=== PATIENT | male | born 1940 | race Caucasian/White ===

== ENCOUNTER 2017-12-30 13:38 | Emergency (ER) | payer OTHER, MEDICARE, BC ==
[2017-12-30 13:49] VITALS: RESP 18
[2017-12-30] MEDS ORDERED: KETOROLAC 60 MG/2 ML VIAL IM STA (14:18)
--- NOTE | 2017-12-30 14:20 | ED ---
General Adult HPI - General Chief complaint: Fall Stated complaint: Fall/back & side pain Time Seen by Provider: 12/30/17 13:45 Source: patient, RN notes reviewed Mode of arrival: wheelchair Limitations: no limitations - History of Present Illness Initial comments: This is a 77-year-old male who comes emergency Department complaining of right lower back pain, right buttocks pain and right hip pain. Patient states yesterday he was on a ladder at about 6 feet off the ground when the ladder slipped and he fell backwards onto his buttocks. Patient states moving his right leg at all it is very painful. Patient states she was able to get around with crutches today but it was much worse today than yesterday. Patient states he also has some pain in his lower right back and buttocks. Patient denies hitting his head patient denies any neck pain patient denies any numbness weakness. Patient denies any chest pain or upper back pain. Patient denies any abdominal pain. Patient denies any upper extremity pain. - Related Data Previous Rx's Medication Instructions Recorded Hydrocodone/Acetaminophen [[place] 1 each PO Q4HR PRN #14 tab 12/30/17 5-325] Allergies Allergy/AdvReac Type Severity Reaction Status Date / Time No Known Allergies Allergy Verified 12/30/17 13:49 Review of Systems ROS Statement: Those systems with pertinent positive or pertinent negative responses have been documented in the HPI. ROS Other: All systems not noted in ROS Statement are negative. Past Medical History Past Medical History: Hypertension History of Any Multi-Drug Resistant Organisms: None Reported Past Surgical History: Adenoidectomy, Hernia Repair, Tonsillectomy Past Psychological History: No Psychological Hx Reported Smoking Status: Never smoker Past Alcohol Use History: Rare Past Drug Use History: None Reported General Exam - General Exam Comments Initial Comments: GENERAL Patient is well-developed and well-nourished. Patient is in mild distress. Neck is full range of motion. EYES Patient's pupils are equal and round. Extraocular motion is intact SKIN Unremarkable NEURO The patient is alert and oriented 3 PYSCH Patient has normal interpersonal interactions. MUSCULOSKELETAL Patient has tenderness with external rotation of his right hip patient's tenderness in his right buttocks patient has some tenderness in the right lower back. Patient has no numbness or weakness. Limitations: no limitations Course Vital Signs 12/30/17 13:44 Temperature 97.9 F Pulse Rate 85 Respiratory 18 Rate Blood Pressure 160/85 O2 Sat by Pulse 97 Oximetry Medical Decision Making - Medical Decision Making X-ray of the lumbar spine shows a anterior endplate compression fracture. X- ray of the pelvis shows superior and inferior rami fractures. CAT scan of the spine does not show any posterior protrusion of the vertebrae. Patient does have multiple disks that are bulging. Disposition Clinical Impression: Vertebral compression fracture, Fracture of multiple pubic rami Disposition: HOME SELF-CARE Condition: Good Instructions: Fall Prevention for Older Adults (ED) Prescriptions: Hydrocodone/Acetaminophen [[place] 5-325] 1 each PO Q4HR PRN #14 tab PRN Reason: Pain Is patient prescribed a controlled substance at d/c from ED?: Yes When asked, does pt state using other controlled substances?: No If prescribed controlled substance>3 days was MAPS reviewed?: Prescribed <3 Days If opioid is for acute pain is fill amount 7 days or less?: Yes If Rx opioid, was Start Talking consent form obtained?: Yes Referrals: Dennise Grubbs DO [Primary Care Provider] - 1-2 days Time of Disposition: 16:28
--- NOTE | 2017-12-30 15:17 | XR ---
EXAMINATION TYPE: XR lumbosacral spine min 4V DATE OF EXAM: 12/30/2017 COMPARISON: NONE HISTORY: 77-year-old male right-sided pain after fall today TECHNIQUE: 6 views FINDINGS: 5 lumbar type vertebral bodies. Hypertrophic facet arthropathy lower lumbar spine. No pars interartic ularis defect. Mild superior endplate deformity of L3. There is additional cortical step-off along th e anterior vertebral body margin. Mild to moderate multilevel degenerative disc disease. Minimal ante rior wedging T12 likely chronic. Anterior endplate spondylosis of the lumbar spine. Alignment is main tained. IMPRESSION: 1. Findings suspected to represent minimal compression fracture of the anterior superior endplate of the L3 vertebral body. Correlate for pain at this level. 2. Hypertrophic facet arthropathy lower lumbar spine and mild to moderate multilevel degenerative dis c disease.
--- NOTE | 2017-12-30 15:20 | XR ---
EXAMINATION TYPE: AP pelvis and 2 views right hip DATE OF EXAM: 12/30/2017 COMPARISON: NONE HISTORY: 77-year-old male right-sided pain after fall today FINDINGS: SI joints appear symmetric and intact as does the pubic symphysis. Moderate superolateral narrowing o f hip joint space on both sides with subchondral sclerosis and marginal spurring. No displaced fractu re. Lucency concerning for nondisplaced fractures of the right superior and inferior pubic rami. No a dditional acute fracture seen. IMPRESSION: 1. Findings suspicious for nondisplaced fractures of the right superior and inferior pubic rami. 2. Moderate bilateral hip OA.
--- NOTE | 2017-12-30 16:11 | CT ---
EXAMINATION TYPE: CT lumbar spine wo con DATE OF EXAM: 12/30/2017 COMPARISON: 12/30/2017 HISTORY: Fall, right side back and leg pain. CT DLP: 990 mGycm CONTRAST: None TECHNIQUE: CT of the lumbar spine is performed on a spiral scan at 3 mm thick sections. Reconstructed images are performed in the coronal and sagittal planes. FINDINGS: T12-L1: No focal disc herniation or significant disc bulge is evident. No spinal canal stenosis or neural foraminal stenosis is present. L1-L2: Moderate disc bulge is present with moderate anterior thecal sac flattening. No AP spinal juanita l stenosis is present. Neural foramen are patent. L2-L3: Broad-based disc bulge has mild anterior thecal sac compression. No AP spinal canal stenosis p resent. Some facet hypertrophy is present. Neural foramen are patent. L3: There is an acute superior endplate compression deformity. This has mild loss of anterior vertebr al body height. No posterior wall displacement is evident. L3-L4: Broad-based disc bulge is present with moderate anterior thecal sac compression. Facet hypertr ophy and ligamentum flavum laxity of posterior lateral thecal sac compression. Some lateral canal conrad rowing may be present. L4-L5: Broad-based disc bulge is present with moderate anterior thecal sac flattening. Facet hypertro phy and ligamentum flavum laxity are further contributing to some mild spinal canal narrowing through this region. No AP spinal canal stenosis is present. Neural foramen are patent. L5-S1: Mild disc bulge is present with anterior thecal sac compression. There appears to be a large l eft paracentral disc herniation. Additional evaluation with MRI could be performed. This would have s ignificant thecal sac compression and likely with nerve root displacement and compression. Correlate with left S1 radicular symptoms. Vertebral alignment appears normal. IMPRESSION: 1. Acute appearing superior endplate compression of L3 without significant loss of vertebral body hei ght. 2. Correlate with left S1 radicular symptoms. There appears to be a large left paracentral disc herni ation at L5-S1. This could be confirmed with MRI. 3. Broad-based disc bulging through multiple levels including L4-5 and L1-2 with moderate anterior th ecal sac compression and milder thecal sac compression from disc bulging at L2-3.
[2017-12-30 16:50] VITALS: BP 151/88; PULSE 71; TEMP 98.4
== END 2017-12-30 16:48 | disposition home or self-care (01) ==
LOC: EC 13:38
DX: S32.591A Other specified fracture of right pubis, initial encounter for closed fracture (principal); S32.030A Wedge compression fracture of third lumbar vertebra, initial encounter for closed fracture; W11.XXXA Fall on and from ladder, initial encounter; Y92.89 Other specified places as the place of occurrence of the external cause
CPT/HCPCS: 72110; 73502; 72131; 99284; 96372; J1885